=== PATIENT | female | born 1995 | race Caucasian/White ===

== ENCOUNTER 2021-08-09 16:29 | Emergency (ER) | payer BC, SELFPAY ==
[2021-08-09 16:31] VITALS: BP 140/91; PULSE 97; RESP 16; TEMP 36.6; O2SAT 98
[2021-08-09 17:11] VITALS: BP 110/75; PULSE 85
[2021-08-09 17:13] VITALS: BP 113/69; PULSE 89
[2021-08-09 17:14] VITALS: BP 123/75; PULSE 90
[2021-08-09 17:20] LABS: Appearance Urine Slightly Cloudy (Clear); Bilirubin Urine Negative (Negative); Blood Urine 2+ (Negative); Color Urine Yellow (Yellow); Glucose Urine UA Negative (Negative); Ketones Urine Negative (Negative); Leukocyte Esterase Ur Negative LEU/UL (Negative); Nitrate Urine Negative (Negative); Protein Urine Negative (Negative); Urobilinogen Urine 0.2 mg/dL (<2.0)
--- NOTE | 2021-08-09 17:22 | ED.FEMALEGU ---
HPI - Female Genitourinary General Chief complaint: Vaginal Bleeding Stated complaint: 5 wks preg, bleeding Time Seen by Provider: 08/09/21 17:04 Source: patient Mode of arrival: ambulatory Limitations: no limitations History of Present Illness HPI Narrative: This is a 26-year-old G4, P2 that presents to the emergency department for vaginal bleeding. Ongoing over the last 5 days. Reports she has had several positive tests at home. Her OB is Dr. Buck. She has had some mild pelvic cramping. Denies fever, vomiting, or dysuria. Related Data Allergies Allergy/AdvReac Type Severity Reaction Status Date / Time cephalexin [From Keflex] Allergy Hives Verified 08/09/21 19:40 Review of Systems Review of Systems: CONSTITUTIONAL: Denies fever GASTROINTESTINAL: Reports pelvic cramping. Denies nausea, vomiting GENITOURINARY: Denies dysuria or hematuria. All systems reviewed & are unremarkable except as noted in HPI and below PMFSH Past Medical History Medical History (Updated 08/09/21 @ 20:51 by Kinga Andres PA-C) History of anxiety Social History Social History (Updated 08/09/21 @ 17:26 by Kinga Andres PA-C) Smoking status: Current every day smoker Exam Narrative: GENERAL: Well-appearing, well-nourished, and in no acute distress. HEAD: Normocephalic, atraumatic. EYES: EOMI. CHEST: Clear to auscultation. No respiratory distress. No wheezes rales or rhonchi HEART: Regular rate and rhythm. No murmur heard. Normal peripheral pulses. ABDOMEN: Soft, nontender, nondistended, normal active bowel sounds. EXTREMITIES: Normal range of motion. No edema. SKIN: Warm, dry, no rash. NEURO: No focal deficits. Alert and oriented x3. PSYCH: Normal mood and affect PELVIC: Small amount of blood in the vaginal vault, cervix is open Course Consultations Consultation #1: Spoke with Dr. Buck about patient and workup who will follow up in clinic Date: 08/09/21 Vital Signs Vital signs: Vital Signs Temperature 97.8 F 08/09/21 16:31 Pulse Rate 97 08/09/21 16:31 Respiratory Rate 16 08/09/21 16:31 Blood Pressure 140/91 H 08/09/21 16:31 Pulse Oximetry 98 08/09/21 16:31 Oxygen Delivery Room Air 08/09/21 16:31 Temperature 97.8 F 08/09/21 16:31 Pulse Rate 90 08/09/21 17:14 Respiratory Rate 16 08/09/21 16:31 Blood Pressure 123/75 08/09/21 17:14 Pulse Oximetry 98 08/09/21 16:31 Oxygen Delivery Room Air 08/09/21 16:31 MDM - Female Genitourinary MDM Narrative Medical decision making narrative: Patient presents to the emergency department for vaginal bleeding with positive home test. Her vitals are stable. Hemoglobin is normal at 13.8. Patient is a negative. Quantitative beta-hCG 19.08. Patient was given a dose of RhoGAM in the ED. No concerning amount of bleeding noted on exam. Spoke with Dr. Buck about patient and workup who will follow up in clinic Lab Data Attestation: I reviewed the patient's lab results. Result diagrams: 08/09/21 17:28 08/09/21 17:28 Labs: Lab Results 08/09/21 08/09/21 08/09/21 Range/Units 17:14 17:28 17:28 WBC 12.8 H (4.5-10.0) K/mm3 RBC 4.46 (4.2-5.4) M/mm3 Hgb 13.8 (12.0-15.0) g/dL Hct 40.4 (37.0-47.0) % MCV 90.6 (80-100) fl MCH 30.9 (26-34) pg MCHC 34.2 (32-36) g/dl RDW 12.3 (11.5-14.5) % Plt Count 379 H (150-375) k/mm3 MPV 10.3 (7.4-10.4) fl Immature Gran % (Auto) 0.4 (0-0.5) % Neut % (Auto) 62.9 (45.5-73.1) % Lymph % (Auto) 28.2 (18.3-44.2) % [place] % (Auto) 6.6 (2.6-8.5) % Eos % (Auto) 1.4 (0-4.4) % Baso % (Auto) 0.5 (0.2-1.2) % Lymph # (Auto) 3.59 H (0.9-3.2) K/mm3 [place] # (Auto) 0.8 H (0.1-0.6) K/mm3 Eos # (Auto) 0.2 (0-0.3) K/mm3 Baso # (Auto) 0.1 (0.0-0.1) K/mm3 Abs Immat Gran (auto) 0.05 H (0.00-0.031) K/mm3 Absolute Neuts (auto) 8.0 H (1.3-6.7) K/mm3 Absolute Nucleated RBC 0.0
[2021-08-09 17:23] LABS: Add Urine Microscopic? YES; Bacteria Urine Trace /hpf; Squamous Epithelial Cell Urine Few /hpf (Few); WBC Urine 0-3 /hpf
[2021-08-09 17:45] LABS: Basophils Absolute Auto 0.1 K/mm3 (0.0-0.1); Basophils Percent Auto 0.5 % (0.2-1.2); Eosinophils Absolute Auto 0.2 K/mm3 (0-0.3); Eosinophils Percent Auto 1.4 % (0-4.4); Hematocrit 40.4 % (37.0-47.0); Hemoglobin 13.8 g/dL (12.0-15.0); Immature Granulocyte Absolute 0.05 K/mm3 (0.00-0.031); Immature Granulocyte Percent A 0.4 % (0-0.5); Lymphocytes Absolute Auto 3.59 K/mm3 (0.9-3.2); Lymphocytes Percent Auto 28.2 % (18.3-44.2); Mean Corpuscular HGB Conc 34.2 g/dl (32-36); Mean Corpuscular Hemoglobin 30.9 pg (26-34); Mean Corpuscular Volume 90.6 fl (80-100); Mean Platelet Volume 10.3 fl (7.4-10.4); Monocytes Absolute Auto 0.8 K/mm3 (0.1-0.6); Monocytes Percent Auto 6.6 % (2.6-8.5); Neutrophils Percent Auto 62.9 % (45.5-73.1); Platelet Count Result 379 k/mm3 (150-375); Red Blood Count 4.46 M/mm3 (4.2-5.4); Red Cell Distribution Width 12.3 % (11.5-14.5); White Blood Count 12.8 K/mm3 (4.5-10.0)
[2021-08-09 17:54] LABS: Alanine Aminotransferase 21 U/L (6-35); Albumin Level 4.5 g/dL (3.5-5.1); Alkaline Phosphatase 79 U/L (38-126); Anion Gap 9 mmol/L (8-16); Aspartate Amino Transferase 22 U/L (14-36); Bilirubin,Total < 0.1 mg/dL (0.2-1.3); Blood Urea Nitrogen 7 mg/dL (7-17); Calcium 8.9 mg/dL (8.4-10.2); Carbon Dioxide 23 mmol/L (22-30); Chloride 106 mmol/L (98-107); Estimated CRCL calculation 102 ml/min; Estimated Glomerular Filt Rate > 60; Glucose 91 mg/dL (65-110); Potassium 3.6 mmol/L (3.4-5.0); Sodium 138 mmol/L (137-145)
[2021-08-09 18:08] LABS: Prothrombin Time 12.8 Seconds (11.1-14.7)
[2021-08-09 18:09] LABS: Partial Thromboplastin Time 31.6 SECONDS (22.3-36.8)
[2021-08-09 18:11] LABS: Beta HCG Quantitative 19.08 mIU/ML
[2021-08-09] MEDS: Please add drug allergy info to patient profile. 1 EACH XX (19:02)
[2021-08-09] MEDS: RHO(D) IMMUNE GLOBULIN 300 MCG/2 ML SYRINGE IM (19:41)
== END 2021-08-09 21:20 | disposition home or self-care (01) ==
PROVIDERS: Physician Assistant; Emergency Provider Emergency Medicine
DX: O20.0 Threatened abortion (principal); O99.331 Smoking (tobacco) complicating pregnancy, first trimester; F17.200 Nicotine dependence, unspecified, uncomplicated; Z3A.01 Less than 8 weeks gestation of pregnancy
CPT/HCPCS: 36415; 80053; 81001; 81025; 84702; 85025; 85461; 85610; 85730; 90384; 96372; 99284; J2790

== ENCOUNTER 2021-08-11 13:14 | Outpatient (CLI) | payer BC, SELFPAY | END 2021-08-11 13:15 | disposition home or self-care (01) | LOC: ANHLAB 13:15 | PROVIDERS: Visit Provider Physician Assistant | DX: O20.0 Threatened abortion (principal) | CPT/HCPCS: 36415; 84702 ==